=== PATIENT | male | born 1995 | race African-American/Black ===

== ENCOUNTER 2019-10-29 01:05 | Emergency (ER) | payer MEDICAID, OTHER ==
[~2019-10-29] VITALS: Ht 177.8 cm; Wt 111.0 kg
[2019-10-29] MEDS ORDERED: LIDOCAINE 1%/EPI 1:100,000 10 ML VIAL IJ ONE (01:45)
[2019-10-29] MEDS ORDERED: CEFAZOLIN 1000MG PREMIX 50 ML IV ONE (01:45)
[2019-10-29] MEDS ORDERED: TETANUS, DIPHTHERIA, PERTUSSIS VAC/PF 0.5ML (>7YR OLD) IM ONE (01:45)
[2019-10-29] MEDS ORDERED: BACITRACIN ZINC OINT UDPKT TOP ONE (01:45)
[2019-10-29 05:34] VITALS: BP 145/74
== END 2019-10-29 05:30 | disposition home or self-care (01) ==
LOC: ER 01:05
DX: S00.83XA Contusion of other part of head, initial encounter (principal); Z88.6 Allergy status to analgesic agent; X58.XXXA Exposure to other specified factors, initial encounter; Y93.89 Activity, other specified; Y92.89 Other specified places as the place of occurrence of the external cause; Y99.8 Other external cause status
CPT/HCPCS: 70450; 70486; 90471; 90715; 93005; 96365; 99285; J0690; J3490